=== PATIENT | male | born 1965 | race Caucasian/White ===

== ENCOUNTER 2016-05-17 00:51 | Emergency (ER) | payer OTHER ==
[2016-05-17 01:49] VITALS: BP 131/89; PULSE 93; TEMP 98.1; BMI 25.8
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
== END 2016-05-17 03:41 | disposition home or self-care (01) ==
LOC: JER 00:51
DX: S39.012A Strain of muscle, fascia and tendon of lower back, initial encounter (principal); X50.0XXS Overexertion from strenuous movement or load, sequela; X02.8XXA Other exposure to controlled fire in building or structure, initial encounter; Y93.89 Activity, other specified; Y92.89 Other specified places as the place of occurrence of the external cause
CPT/HCPCS: 99282-25

== ENCOUNTER 2017-09-18 06:11 | Emergency (ER) | payer OTHER ==
[2017-09-18 06:56] VITALS: BMI 25.1
--- NOTE | 2017-09-18 08:03 | PDOC ---
Attending Attestation - HPI HPI: 09/18/17 08:05 The patient is a 51 year old male, with a significant past medical history of chronic back pain, who presents to the emergency department with worsening back pain and nasal congestion since last night. The patient reports lower back pain , slightly worse than his baseline since last night. He denies any recent trauma or loss in bowel/bladder function. He reports mild nasal congestion secondary to seasonal allergies. He denies any recent fever, chills, cough, headache, or dizziness. He denies any recent travel or sick contacts. Patient reports having a recent physical exam which was unremarkable. Allergies: NKDA - Physicial Exam PE: 09/18/17 08:07 Constitutional: Awake, alert, oriented. No acute distress. Head: Normocephalic. Atraumatic Eyes: PERRL. EOMI. Conjunctivae are not pale. ENT: Mucous membranes are moist and intact. Posterior pharynx without exudates or erythema. Uvula midline. Neck: Supple. Full ROM. No lymphadenopathy. Cardiovascular: Regular rate. Regular rhythm. S1, S2 regular. Distal pulses are 2+ and symmetric. Pulmonary/Chest: No evidence of respiratory distress. Clear to auscultation bilaterally No wheezing, rales or rhonchi. Abdominal: Soft and non-distended. There is no tenderness. No rebound, guarding or rigidity. No organomegaly. No palpable masses. Good bowel sounds. Back: Mild lower back tenderness. No midline tenderness. No CVA tenderness. Musculoskeletal: No edema. No cyanosis. No clubbing. Full range of motion in all extremities. No calf tenderness. Radial/pedal pulses are intact and 2+ bilaterally Skin: Skin is warm and dry. No petechiae. No purpura. Neurological: Alert and oriented to person, place, and time. Cranial nerves II -XII are grossly intact. Normal speech. Strength is grossly symmetric. No sensory deficits. - Medical Decision Making 09/18/17 08:07 Documentation prepared by David Davis, acting as medical malpractice paralegal for Wendy Venegas DO. <David Davis - Last Filed: 09/18/17 08:05> - Resident Resident Name: Cam Andino - ED Attending Attestation I have performed the following: I have examined & evaluated the patient, The case was reviewed & discussed with the resident, I agree w/resident's findings & plan, Exceptions are as noted - Medical Decision Making 09/18/17 08:03 I, Dr. Wendy Venegas, DO, attest that this document has been prepared under my direction and personally reviewed by me in its entirety. I further attest, that it accurately reflects all work, treatment, procedures and medical decision -making performed by me. 09/18/17 08:20 a/p: 51yo male with R low back pain -no signs/symptoms of caude equina -usually uses motrin - didn't have any at work -ambulatory in the ED -no midline ttp -parapsinal ttp, no cva ttp, FROM of back, muscle strength LE intact, sensation intact -will give ortho follow up, anti-inflamm with muscle relaxers -stable for d/c to home 09/18/17 08:22 no urinary complaints. <Wendy Venegas - Last Filed: 09/18/17 08:22>
[2017-09-18] MEDS ORDERED: IBUPROFEN 600 MG TABLET (FP) PO ONE ×2 (08:09→08:17)
--- NOTE | 2017-09-18 08:09 | PDOC ---
History of Present Illness - General Chief Complaint: Back Pain Stated Complaint: LOW BACK PAIN Time Seen by Provider: 09/18/17 07:39 - History of Present Illness Initial Comments: 51 year old male, with a significant past medical history of chronic lower back pain, seasonal allergies, who presents to the emergency department complaining of lower back pain and nasal congestion. Pt denies any recent trauma or worsening of lower back pain from baseline. He rates the pain as 5/10, dull aching, with no radiation, no midline tenderness and has received imaging in past which was negative. Has had back pain for multiple years. Pt with recent physical which was unremarkable. Denies any LE numbness, weakness or change in temp between legs, loss of bowel or bladder function. Nasal congestion began recently secondary to allergies. No other infectious symptoms, travel or sick contacts. Denies chest pain, shortness of breath, headache or dizziness. Denies fever, chills, nausea, vomiting, diarrhea and constipation. Denies dysuria, frequency, urgency and hematuria. Allergies: None Past surgical history: Kidney removal for donation. L ankle fx repair. R pectoral surgical correction Social History: Denies toxic habits 09/18/17 08:02 Past History - Past Medical History Allergies/Adverse Reactions: Allergies Allergy/AdvReac Type Severity Reaction Status Date / Time No Known Allergies Allergy Verified 09/18/17 06:56 Home Medications: Ambulatory Orders Methocarbamol [Robaxin -] 500 mg PO BID #14 tablet 09/18/17 Anemia: No Asthma: No Cancer: No Cardiac Disorders: No CVA: No COPD: No CHF: No Dementia: No Diabetes: No GI Disorders: No Disorders: No HTN: Yes Hypercholesterolemia: Yes Liver Disease: No Seizures: No Thyroid Disease: No - Surgical History Abdominal Surgery: No Appendectomy: No Cardiac Surgery: No Cholecystectomy: No Lung Surgery: No Neurologic Surgery: No Orthopedic Surgery: Yes (1993 FX LEFT ANKLE WITH ORIF) - Immunization History Immunization Up to Date: Yes - Suicide/Smoking/Psychosocial Hx Smoking History: Never smoked Have you smoked in the past 12 months: No Number of Cigarettes Smoked Daily: 0 Cigars Per Day: 0 Information on smoking cessation initiated: No Hx Alcohol Use: No Drug/Substance Use Hx: No Substance Use Type: None Hx Substance Use Treatment: No Review of Systems - Review of Systems Comments:: GENERAL/CONSTITUTIONAL: No fever or chills. No weakness. HEAD, EYES, EARS, NOSE AND THROAT: +Nasal congestion. No change in vision. No ear pain or discharge. No sore throat. CARDIOVASCULAR: No chest pain or shortness of breath RESPIRATORY: No cough, wheezing, or hemoptysis. GASTROINTESTINAL: No nausea, vomiting, diarrhea or constipation. GENITOURINARY: No dysuria, frequency, or change in urination. MUSCULOSKELETAL: BL lower back pain. No joint or muscle swelling or pain. No neck. SKIN: No rash NEUROLOGIC: No headache, vertigo, loss of consciousness, or change in strength/ sensation. ENDOCRINE: No increased thirst. No abnormal weight change HEMATOLOGIC/LYMPHATIC: No anemia, easy bleeding, or history of blood clots. ALLERGIC/IMMUNOLOGIC: No hives or skin allergy. 09/18/17 08:02 09/18/17 08:13 *Physical Exam - Vital Signs Last Vital Signs Temp Pulse Resp BP Pulse Ox 97.7 F 72 18 118/80 97 09/18/17 06:48 09/18/17 06:48 09/18/17 06:48 09/18/17 06:48 09/18/17 06:48 - Physical Exam Comments: GENERAL: MA man, Awake, alert, and fully oriented, in no acute distress HEAD: No signs of trauma, normocephalic, atraumatic EYES: PERRLA, EOMI, sclera anicteric, conjunctiva clear ENT: Mild nasal congestion, Auricles normal inspection, hearing grossly normal, oropharynx clear without exudates. Moist mucosa NECK: Normal ROM, supple, no lymphadenopathy, JVD, or masses LUNGS: No distress, speaks full sentences, clear to auscultation bilaterally HEART: Regular rate and rhythm, normal S1 and S2, no murmurs, rubs or gallops, peripheral pulses normal and equal bilaterally. ABDOMEN: Soft, nontender, normoactive bowel sounds. No guarding, no rebound. No masses EXTREMITIES : Normal inspection, Normal range of motion, no edema. No clubbing or cyanosis. MSK: Trace BL lumbar muscle pain on palpation. No midline TTP, epispinal tenderness. NEUROLOGICAL: Cranial nerves II through XII grossly intact. Normal speech, normal gait, no focal sensorimotor deficits SKIN: Warm, Dry, normal turgor, no rashes or lesions noted 09/18/17 08:02 Medical Decision Making - Medical Decision Making 51 yo man with pmh of chronic lower back and allergies who presents for brief check-up and re-evaluation of lower back pain. No neurovascular symptoms, no indication for imaging at this time. Pain is chronic, likely secondary to muscle spasm worsened by mechanical strain. Will discharge with motrin/robaxin for pain/muscle spasm control, orthopedic f/u with Dr. Way. 09/18/17 08:03 *DC/Admit/Observation/Transfer Diagnosis at time of Disposition: Low back pain Qualifiers: Chronicity: chronic - Discharge Dispostion Disposition: HOME Condition at time of disposition: Good Decision to Admit order: No - Prescriptions Prescriptions: Methocarbamol [Robaxin -] 500 mg PO BID #14 tablet - Referrals Referrals: Bhupinder Way MD [Staff Physician] - 1 week - Patient Instructions Additional Instructions: You were evaluated for lower back pain during your stay. Please apply alternating hot and cold pack to the area as needed. You may also take motrin 600mg every 4 hours as needed for pain control. Please stretch your lower back regular and focus on core strengthening exercises. Please follow-up with your primary care provider in one week. You are being provided a prescription for Robaxin, a muscle relaxant. Please take as needed, maximum of twice a day. You are also being provided a referral for our orthopedist, Dr. Way. Please call his office to schedule an appointment. Please return to the hospital if you experience any of the following symptoms: - weakness, numbness in your legs - loss of bowel or bladder function - worsening pain in your lower back - inability to walk - Any new or concerning symptoms. - Post Discharge Activity Forms/Work/School Notes: Back to Work
[2017-09-18 08:39] VITALS: BP 129/76; PULSE 80; TEMP 98.1
== END 2017-09-18 08:40 | disposition home or self-care (01) ==
LOC: JER 06:11
DX: M54.5 Low back pain (principal); G89.29 Other chronic pain; I10 Essential (primary) hypertension; E78.00 Pure hypercholesterolemia, unspecified
CPT/HCPCS: 99282-25